=== PATIENT | male | born 1970 | race Asian ===

== ENCOUNTER 2019-10-07 20:07 | Emergency (ER) | payer OTHER ==
[~2019-10-07] VITALS: Ht 180.3 cm; Wt 86.2 kg
[2019-10-07 20:20] VITALS: BP_SYST 140
[2019-10-07] MEDS ORDERED: KETOROLAC TROMETHAMINE 60 MG/2 ML VIAL IM ONE (20:45)
[2019-10-07] MEDS ORDERED: DEXAMETHASONE SOD PHOSPHATE 10 MG/ML VIAL IM ONE (20:45)
== END 2019-10-07 21:20 | disposition home or self-care (01) ==
LOC: SED 20:07
DX: M54.32 Sciatica, left side (principal); R03.0 Elevated blood-pressure reading, without diagnosis of hypertension
CPT/HCPCS: 96372; 99283; J1100; J1885

== ENCOUNTER 2019-10-28 00:02 | Emergency (ER) | payer OTHER ==
[~2019-10-28] VITALS: Ht 180.3 cm; Wt 88.5 kg
[2019-10-28 00:18] VITALS: BP_SYST 119
--- NOTE | 2019-10-28 00:22 | NUR ---
Patient triaged and placed in waiting room. VSS and patient appears in no acute distress at this time. Accompanied by self, awaiting available bed, and MD notified of need for MSE.
--- NOTE | 2019-10-28 02:46 | NUR ---
Patient to ER bed 2 to gown for evaluation. Side rails up.
--- NOTE | 2019-10-28 02:46 | NUR ---
PLACED IN BED 2. HERE FOR LEFT BUTTOCK PAIN RADIATING TO THE LEFT LEG.
--- NOTE | 2019-10-28 03:29 | NUR ---
ER-MD CAME BY BEDSIDE TO EVALUATE PT.
--- NOTE | 2019-10-28 03:41 | NUR ---
TORADOL 45 MG IM AND DECADRON 10 MG IM GIVEN ORDERED.
[2019-10-28] MEDS ORDERED: DEXAMETHASONE SOD PHOSPHATE 10 MG/ML VIAL IM ONE (03:45)
[2019-10-28] MEDS ORDERED: KETOROLAC TROMETHAMINE 60 MG/2 ML VIAL IM ONE (03:45)
--- NOTE | 2019-10-28 04:00 | NUR ---
DISCHARGED STABLE AND IMPROVED. VERBAL AND WRITTEN AFTERCARE INSTRUCTIONS GIVEN. VERBALIZED UNDERSTANDING. LEFT AMBULATORY WITH STABLE GAIT.
[2019-10-28 04:05] VITALS: BP_SYST 109
== END 2019-10-28 04:05 | disposition home or self-care (01) ==
LOC: SED 00:02
DX: M54.32 Sciatica, left side (principal); M79.652 Pain in left thigh
CPT/HCPCS: 96372; 99283; J1100; J1885